=== PATIENT | male | born 1990 ===

== ENCOUNTER 2019-12-19 05:57 | Day surgery (SDC) | payer BC ==
[~2019-12-19] VITALS: Ht 182.9 cm; Wt 92.0 kg
--- NOTE | 2019-12-19 10:34 | NUR ---
STATES ABDOMINAL PAIN 2/10 AND TOLERABLE. DENIES NAUSEA. ANSWERS QUESTIONS APPROPRIATELY BUT SOON NOT TALKED TO, PATIENT CLOSES EYES AND APPEARS TO GO TO SLEEP.
--- NOTE | 2019-12-19 11:04 | NUR ---
REPORT GIVEN TO JOSE MARTIN LUTHER RN
--- NOTE | 2019-12-19 11:23 | NUR ---
PT HAS BEEN ABLE TO DRINK SOME JUICE. FALLS ASLEEP QUICKLY. PT C/O FEELING LIKE HE CAN'T WAKE UP AND ALSO C/O OF NAUSEA. PT GIVEN ZOFRAN 4MG IV.
--- NOTE | 2019-12-19 12:10 | NUR ---
PT RX GIVEN TO PT MOTHER TO GET RX FILLED WITH [facility] OF PT. PT REMAINS DROWSY, REPORTS NAUSEA IS BETTER. ABLE TO EAT SOME VANILLA PUDDING. ASSESSED PT DRESSING. MIDDLE DRESSING APPEARS SATURATED WITH SEROSANGINOUS FLUID. SPOKE WITH DR. SINGH WITH [facility] TO REDRESS SITE. OLD DRESSING REMOVED AND NEW 4X4 AND TEGADERM DRESSING APPLIED WHILE USING STERILE GLOVES. PT FRANCISCO THEN OVER TO TALK WITH PT AGAIN AND REVIEWED SOME ADDITIONAL DISCHARGE INSTRUCTIONS. PT GIVEN NORCO AT THIS TIME. WILL MONITOR FOR A BIT THEN PROCEED WITH DISCHARGE.
== END 2019-12-19 12:41 | disposition home or self-care (01) ==
LOC: ORSCMMR 05:57 → ORD 07:30 → ORSCMMR 12:41
PROVIDERS: Surgery
PROC: 8E0W4CZ Robotic Assisted Procedure of Trunk Region, Percutaneous Endoscopic Approach (ICD-10-PCS; principal; 2019-12-19 07:30)
PROC: 0YUA4JZ Supplement Bilateral Inguinal Region with Synthetic Substitute, Percutaneous Endoscopic Approach (ICD-10-PCS; principal; 2019-12-19 07:30)
DX: K40.20 Bilateral inguinal hernia, without obstruction or gangrene, not specified as recurrent (principal)
CPT/HCPCS: 49650; S2900; A9270-GY; C1781; J0690; J1100; J2250; J2405; J2704; J2765; J3010; J7120